=== PATIENT | male | born 1965 | race Caucasian/White ===

== ENCOUNTER 2019-11-01 00:22 | Inpatient (IN) | payer MEDICAID ==
[2019-11-01] VITALS (20 sets, daily range): BP systolic 83–138; BP diastolic 48–83; BMI 26.4
[~2019-11-01] VITALS: Ht 177.8 cm; Wt 83.5 kg
--- NOTE | ~2019-11-01 | OP ---
PATIENT NAME: VAMSI QUIJANO MEDICAL RECORD: [id number] :69 LOCATION:D[facility] D.2306 ADMISSION DATE:11/01/19 SURGEON: ROGER DONOVAN MD DATE OF OPERATION: 11/06/2019 PREOPERATIVE DIAGNOSES: 1. Need for IV access. 2. Acute renal failure secondary to pneumonia. 3. Sepsis secondary to pneumonia. 4. Pneumonia with sepsis. POSTOPERATIVE DIAGNOSES: 1. Need for IV access. 2. Acute renal failure secondary to pneumonia. 3. Sepsis secondary to pneumonia. 4. Pneumonia with sepsis. PROCEDURES: 1. Left subclavian vein triple-lumen central venous line placement. 2. Left femoral arterial line placement. SURGEON: Roger Donovan MD REPORT OF PROCEDURE: The patient's left chest was prepped and draped in sterile fashion. A needle was used to cannulate the left subclavian vein and a guidewire was advanced with ease. Over this wire, a dilator was placed followed by the triple-lumen catheter. The catheter aspirated nonpulsatile dark blood and flushed easily in all 3 ports. This was sutured into place with 3-0 nylon and dressed appropriately. We then prepped and draped the patient's left groin. A needle was used to cannulate the patient's left femoral artery. As we cannulated this, we had good pulsatile flow. A wire was extended through the Angiocath and we then placed the longer femoral arterial cath. There continued to be arterial pulsatile flow through this catheter. We sutured this into place with 3-0 nylons and dressed these appropriately. The patient had a good tracing on the screen following placement and the art line correlated with the cuff pressure. COMPLICATIONS: None. CONDITION: Critical. ANESTHESIA: General endotracheal. BLOOD LOSS: Minimal. Procedure done in the ICU at the bedside. NTS:[id number] Voice Confirmation ID: [id number] DOCUMENT ID: [id number] OPERATIVE REPORT [id number] MACIEROGER MADISON MD CC: [id number] DICTATION DATE: 11/06/19 1156 PAPER GOODS MACHINE OPERATOR: 11/06/19 213 ADM IN [facility] [address] [place] [address]
[2019-11-01 00:55] LABS: HEMOGLOBIN 9.4 g/dL (13.5-17.5); MCH 27.6 pg (26.0-34.0); MCHC 31.3 g/dL (31.0-37.0); MEAN PLATELET VOLUME 9.1 fL (7.4-10.4); PLATELET COUNT 216 10x3/uL (130-400); RBC 3.41 10x6/uL (4.20-6.10); RDW 15.5 % (11.5-14.5); WBC 24.9 10x3/uL (4.8-10.8)
[2019-11-01 00:59] LABS: INR 1.37 (0.85-1.17); PROTIME 16.7 SECONDS (11.6-15.0)
--- NOTE | 2019-11-01 00:59 | NUR ---
CODE SEPSIS PER DR NG
[2019-11-01 01:00] LABS: APTT 42.6 SECONDS (22.8-39.4)
[2019-11-01 01:05] LABS: CALC OSMOLALITY 264 mosm/kg (275-300); CALCIUM 9.5 mg/dL (8.5-10.1); CARBON DIOXIDE 32.6 mmol/L (21.0-32.0); CHLORIDE - SERUM 97 mmol/L (98-107); CREATININE - SERUM 0.4 mg/dL (0.6-1.3); GLUCOSE 145 mg/dL (74-106); POTASSIUM - SERUM 4.9 mmol/L (3.5-5.1); SODIUM 130 mmol/L (136-145); UREA NITROGEN 14 mg/dL (7-18); eGFR NON AFRICAN AMERICAN > 90 mL/min (90-120)
[2019-11-01 01:16] LABS: LYMPHOCYTES 4 % (15-50); MONOCYTES 5 % (2-11); NEUTROPHILS 83 % (40-80); PLATELET ESTIMATE NORMAL
[2019-11-01 01:22] LABS: ALBUMIN 1.3 g/dL (3.4-5.0); ALKALINE PHOSPHATASE 77 U/L (30-120); ALT (SGPT) 25 U/L (10-68); BILIRUBIN - TOTAL 0.28 mg/dL (0.2-1.3); CKMB 3.6 U/L (0.0-3.6); CREATINE KINASE 51 UL (21-232); PRO BNP 948 pg/mL (0-125); PROTEIN - SERUM 5.9 g/dL (6.4-8.2)
[2019-11-01 01:24] LABS: TROPONIN-I 0.259 ng/mL (0.000-0.060)
--- NOTE | 2019-11-01 03:19 | NUR ---
PT APPEARS TO HAVE INCREASED WORK OF BREATHING AND IS ACTIVE DISTRESS. DR NG NOTIFIED.
--- NOTE | 2019-11-01 03:21 | NUR ---
moved to t2 for intubation
--- NOTE | 2019-11-01 03:30 | NUR ---
PT INTUBATED WITH 7.[address] NG. POSITIVE COLOR CHANGE NOTED. RESPIRATORY THERAPIST AT BEDSIDE.
[2019-11-01] MEDS ORDERED: HYDROCODON-ACE1 EAC7 PO (03:58)
[2019-11-01] MEDS ORDERED: COUMADIN10 MG PO (04:01)
[2019-11-01] MEDS ORDERED: ZOSYN 3.3753.375 G1 IV (04:01)
[2019-11-01] MEDS ORDERED: HYDROCODON-ACE1 EA10 PO (04:03)
[2019-11-01] MEDS ORDERED: LEVOFLOXAC750 MG/150 IV (04:04)
[2019-11-01] MEDS ORDERED: FUROSEMIDE10 MG/M1 IV (04:06)
[2019-11-01] MEDS ORDERED: TORADOL30 MG/ML IM (04:06)
[2019-11-01] MEDS ORDERED: LOVENOX80 MG/0.8 SC (04:07)
[2019-11-01] MEDS ORDERED: DULCOLAX10 MG/SUPP RC (04:08)
[2019-11-01] MEDS ORDERED: COLACE100 MG PO (04:08)
[2019-11-01] MEDS ORDERED: PROMOD LIQUID P30 M1 PO (04:10)
[2019-11-01] MEDS ORDERED: CHRONULAC30 ML PO (04:10)
[2019-11-01] MEDS ORDERED: BUSPAR 15 MG TA15 MG PO (04:11)
[2019-11-01] MEDS ORDERED: RISPERDAL1 MG PO (04:12)
[2019-11-01] MEDS ORDERED: TERAZOSIN HCL2 MG PO (04:12)
[2019-11-01] MEDS ORDERED: TIROSINT25 MCG PO (04:12)
[2019-11-01] MEDS ORDERED: ED-SPAZ0.125 MG PO (04:13)
[2019-11-01] MEDS ORDERED: FLOMAX0.4 MG PO (04:13)
--- NOTE | 2019-11-01 04:53 | NUR ---
PT ARRIVED FROM ER ON STREATCHER WITH FIELD ARTILLERY CREWMEMBER AND GAORTEGADSX2. PT IS INTUABTED/SEDATED. NO DISTRESS NOTED. VSS. TRANSFERED TO BED SAFELY. WILL DO FULL ASSESSMENT AND DOC IN FLOW SHEET. BED IS LEFT LOW,SIDE RASILX2,CALL LIGHT WTIHIN REACH. BED ALARM ON. ISOLATION PUI PROTOCOL OBSERVED. RESTRAINTS OBSERVED WITH WARM/PINK EXTREMTIES BILAT
--- NOTE | 2019-11-01 05:18 | NUR ---
AZITHROMYCIN 500MG/250ML STARTED 034 ENDED 441. ROCEPHIN 1000MG/50ML STARTED 025 ENDED 328.
--- NOTE | 2019-11-01 07:00 | NUR ---
BEDSIDE REPORT RECEIVED. SHIFT ASSESSMENT COMPLETED PER FLOWSHEET, SEE FLOWSHEET FOR INFORMATION. NO ACUTE NEEDS OR DISTRESS NOTED AT THIS TIME. VSS. WILL CONT TO MONITOR. PT INTUBATED AND SEDATED.
--- NOTE | 2019-11-01 07:00 | NUR ---
PT IS RESTING/CALM/INTUBATED/SEDATED. VSS. NO DISTRESS NOTED. BED IS LOW,SIDE RAISLX2,CALL LIGHT WTIHIN REACH. WILL CONINTUE TO MONITOR
--- NOTE | 2019-11-01 07:25 | NUR ---
ET TUBE WAS CHANGED OUT
--- NOTE | 2019-11-01 09:00 | NUR ---
PT RESTING IN BED INTUBATED AND SEDATED. NO ACUTE NEEDS OR DISTRESS NOTED AT THIS TIME. VSS. WILL CONT TO MONITOR.
[2019-11-01 09:27] LABS: HEMATOCRIT 27.7 % (42.0-54.0); HEMOGLOBIN 8.6 g/dL (13.5-17.5); MCH 27.4 pg (26.0-34.0); MCV 88.2 fL (80.0-100.0); MEAN PLATELET VOLUME 9.1 fL (7.4-10.4); PLATELET COUNT 220 10x3/uL (130-400); RBC 3.14 10x6/uL (4.20-6.10); RDW 15.4 % (11.5-14.5); WBC 23.2 10x3/uL (4.8-10.8)
[2019-11-01 09:42] LABS: % SATURATION 15 % (15-55); IRON 15 ug/dl (35-150); TOTAL IRON BIND CAPACITY 99 ug/dl (260-445); UNSAT IRON BIND CAPACITY 84 ug/dl (150-375)
[2019-11-01 09:46] LABS: LYMPHOCYTES 4 % (15-50); NEUTROPHILS 93 % (40-80); PLATELET ESTIMATE NORMAL
[2019-11-01 10:10] LABS: ALBUMIN 1.2 g/dL (3.4-5.0); ALKALINE PHOSPHATASE 73 U/L (30-120); ALT (SGPT) 30 U/L (10-68); BILIRUBIN - TOTAL 0.19 mg/dL (0.2-1.3); CALC OSMOLALITY 268 mosm/kg (275-300); CALCIUM 9.6 mg/dL (8.5-10.1); CARBON DIOXIDE 31.2 mmol/L (21.0-32.0); CHLORIDE - SERUM 100 mmol/L (98-107); CKMB 4.2 U/L (0.0-3.6); CREATINE KINASE 41 UL (21-232); CREATININE - SERUM 0.4 mg/dL (0.6-1.3); GLUCOSE 104 mg/dL (74-106); MAGNESIUM - SERUM 1.9 mg/dL (1.8-2.4); PHOSPHOROUS 3.2 mg/dL (2.5-4.9); POTASSIUM - SERUM 4.8 mmol/L (3.5-5.1); PROTEIN - SERUM 5.4 g/dL (6.4-8.2); SODIUM 134 mmol/L (136-145); TROPONIN-I 0.393 ng/mL (0.000-0.060); UREA NITROGEN 16 mg/dL (7-18); eGFR NON AFRICAN AMERICAN > 90 mL/min (90-120)
--- NOTE | 2019-11-01 11:00 | NUR ---
REASSESSMENT COMPLETED PER FLOWSHEET, SEE FLOWSHEET FOR INFORMATION. PT INTUBATED AND SEDATED. NO ACUTE NEEDS OR DISTRESS NOTED AT THIS TIME. WILL CONT TO MONITOR.
--- NOTE | 2019-11-01 13:00 | NUR ---
RESTING IN BED WITH EYES CLOSED. INTUBATED AND SEDATED. NO ACUTE NEEDS OR DISTRESS NOTED AT THIS TIME. VSS. WILL CONT TO MONITOR.
--- NOTE | 2019-11-01 15:00 | NUR ---
REASSESSMENT COMPLETED PER FLOWSHEET, SEE FLOWSHEET FOR INFORMATION. LAB RECEIVED BY DR.CHINN ROSE WILSON. WILL CONT TO MONITOR. VSS.
[2019-11-01 15:08] LABS: CKMB 2.2 U/L (0.0-3.6); CREATINE KINASE 35 UL (21-232)
[2019-11-01 15:09] LABS: TROPONIN-I 0.478 ng/mL (0.000-0.060)
--- NOTE | 2019-11-01 15:43 | NUR ---
UPDATE GIVEN TO , EXPLAINS THAT CANCER CAN CAUSE AN INCREASE IN LACTIC ACID LEVELS, NO NEW ORERS RECIEVED. WILL CONT TO MONITOR.
--- NOTE | 2019-11-01 17:00 | NUR ---
PT NEGATIVE FOR COVID. UPDATED. WILL CONT TO MONITOR. VSS.
--- NOTE | 2019-11-01 18:12 | NUR ---
DR.CHINN ROSE. PT HEART RATE INCREASED FROM 70-80, PT HEART RATE 120-130S. WILL CONT TO MONITOR.
--- NOTE | 2019-11-01 18:20 | NUR ---
GIVEN UPDATE, SABRINA RN VERIFIED ORDER FOR FENTANYL. WILL CONT TO MONITOR.
[2019-11-01 20:25] LABS: CKMB 1.4 U/L (0.0-3.6); CREATINE KINASE 54 UL (21-232)
[2019-11-01 20:27] LABS: TROPONIN-I 1.379 ng/mL (0.000-0.060)
[2019-11-02] VITALS (25 sets, daily range): BP systolic 83–138; BP diastolic 49–82; BMI 26.4
--- NOTE | 2019-11-02 07:00 | NUR ---
PT REPORT RECEIVED FROM SUPERVISOR SHAVING AND SPLITTING NURSE. NO ACUTE SIGNS OF DISTRESS NOTED. SHIFT ASSESSMENT COMPLETED. PT VENTED AND SEDATED. WILL CONTINUE TO MONITOR.
[2019-11-02 07:32] LABS: BASOPHILS 0.1 % (0-2); EOSINOPHILS 0.1 % (0-7); HEMATOCRIT 29.5 % (42.0-54.0); HEMOGLOBIN 8.8 g/dL (13.5-17.5); IMMATURE GRANULOCYTES 1.3 % (0-5); LYMPHOCYTES 4.9 % (15-50); MCH 26.7 pg (26.0-34.0); MCHC 29.8 g/dL (31.0-37.0); MCV 89.7 fL (80.0-100.0); MEAN PLATELET VOLUME 10.4 fL (7.4-10.4); MONOCYTES 5.4 % (2-11); NEUTROPHILS 88.2 % (40-80); PLATELET COUNT 169 10x3/uL (130-400); RBC 3.29 10x6/uL (4.20-6.10); RDW 15.6 % (11.5-14.5); WBC 17.5 10x3/uL (4.8-10.8)
[2019-11-02 07:58] LABS: ALBUMIN 1.3 g/dL (3.4-5.0); ALKALINE PHOSPHATASE 65 U/L (30-120); ALT (SGPT) 29 U/L (10-68); BILIRUBIN - TOTAL 0.23 mg/dL (0.2-1.3); CALCIUM 9.4 mg/dL (8.5-10.1); CARBON DIOXIDE 32.1 mmol/L (21.0-32.0); CHLORIDE - SERUM 102 mmol/L (98-107); CREATININE - SERUM 0.5 mg/dL (0.6-1.3); GLUCOSE 100 mg/dL (74-106); MAGNESIUM - SERUM 1.9 mg/dL (1.8-2.4); PHOSPHOROUS 3.1 mg/dL (2.5-4.9); POTASSIUM - SERUM 4.6 mmol/L (3.5-5.1); PROTEIN - SERUM 4.9 g/dL (6.4-8.2); SODIUM 139 mmol/L (136-145); eGFR NON AFRICAN AMERICAN > 90 mL/min (90-120)
[2019-11-02 07:59] LABS: CALC OSMOLALITY 281 mosm/kg (275-300); TROPONIN-I 0.367 ng/mL (0.000-0.060); UREA NITROGEN 25 mg/dL (7-18)
[2019-11-02 09:14] LABS: INR 1.22 (0.85-1.17); PROTIME 15.3 SECONDS (11.6-15.0)
[2019-11-02 09:20] LABS: APTT 27.8 SECONDS (22.8-39.4)
--- NOTE | 2019-11-02 09:50 | NUR ---
DR HENDRICKS AT BEDSIDE. UPDATE GIVEN. ORDERS RECEIVED. WILL CONTINUE TO MONITOR
--- NOTE | 2019-11-02 11:00 | NUR ---
PT RESTING IN BED. NO SIGNS OF DISTRESS NOTED. REASSESSMENT COMPLETED. WILL CONTINUE TO MONITOR
--- NOTE | 2019-11-02 13:00 | NUR ---
PT RESTING IN BED. GUARD AT BEDSIDE. NO SIGNS OF DISTRESS NOTED. WILL CONTINUE TO MONITOR. TUBE FEEDING STARTED PER ORDER FROM DR HENDRICKS
--- NOTE | 2019-11-02 15:00 | NUR ---
PT REASSESSMETN COMPLETED. NO SIGNS OF DISTRESS NOTED. WILL CONTINUE TO MONITOR
[2019-11-02 17:32] LABS: BILIRUBIN NEGATIVE (NEGATIVE); GLUCOSE NEGATIVE (NEGATIVE); KETONE SMALL mg/dL (NEGATIVE); NITRITE NEGATIVE (NEGATIVE); UROBILINOGEN NORMAL (NORMAL)
--- NOTE | 2019-11-02 17:54 | NUR ---
PT RESTING IN BED. ORAL CARE PROVIDED. NO SIGNS OF DISTRESS NOTED. WILL CONTINUE TO MONITOR
[2019-11-03] VITALS (24 sets, daily range): BP systolic 88–132; BP diastolic 55–80; Ht 177.8 cm; Wt 83.5 kg
[2019-11-03 03:13] LABS: BASOPHILS 0 % (0-2); EOSINOPHILS 0 % (0-7); HEMATOCRIT 31.2 % (42.0-54.0); HEMOGLOBIN 9.2 g/dL (13.5-17.5); IMMATURE GRANULOCYTES 0.9 % (0-5); LYMPHOCYTES 4.2 % (15-50); MCH 26.8 pg (26.0-34.0); MCHC 29.5 g/dL (31.0-37.0); MEAN PLATELET VOLUME 9.8 fL (7.4-10.4); MONOCYTES 3.3 % (2-11); NEUTROPHILS 91.6 % (40-80); PLATELET COUNT 202 10x3/uL (130-400); RBC 3.43 10x6/uL (4.20-6.10); RDW 15.7 % (11.5-14.5); WBC 20.2 10x3/uL (4.8-10.8)
[2019-11-03 03:29] LABS: ALBUMIN 1.3 g/dL (3.4-5.0); ALKALINE PHOSPHATASE 66 U/L (30-120); ALT (SGPT) 30 U/L (10-68); BILIRUBIN - DIRECT 0.13 mg/dL (0.00-0.30); BILIRUBIN - INDIRECT 0.11 mg/dL (0.00-1.00); BILIRUBIN - TOTAL 0.24 mg/dL (0.2-1.3); CALC OSMOLALITY 277 mosm/kg (275-300); CALCIUM 10.7 mg/dL (8.5-10.1); CARBON DIOXIDE 30.5 mmol/L (21.0-32.0); CHLORIDE - SERUM 104 mmol/L (98-107); GLUCOSE 88 mg/dL (74-106); MAGNESIUM - SERUM 1.9 mg/dL (1.8-2.4); PHOSPHOROUS 2.8 mg/dL (2.5-4.9); POTASSIUM - SERUM 4.3 mmol/L (3.5-5.1); PROTEIN - SERUM 5.5 g/dL (6.4-8.2); SODIUM 138 mmol/L (136-145); UREA NITROGEN 21 mg/dL (7-18)
[2019-11-03 03:38] LABS: CREATININE - SERUM 0.3 mg/dL (0.6-1.3); eGFR NON AFRICAN AMERICAN > 90 mL/min (90-120)
--- NOTE | 2019-11-03 07:00 | NUR ---
PT REPORT RECEIVED FROM HYDRO STATION SUPERVISOR NURSE. NO ACUTE SIGNS OF DISTRESS NOTED. PT RESTING IN BED INTUBATED AND SEDATED. SHIFT ASSESSMENT COMPLETED. WILL CONTINUE TO MONITOR
--- NOTE | 2019-11-03 09:31 | NUR ---
PT RESTING IN BED. GUARD AT BEDSIDE. NO SIGNS OF DISTRESS NOTED. WILL CONTINUE TO MONITOR
--- NOTE | 2019-11-03 11:00 | NUR ---
PT RESTING IN BED. NO SIGNS OF DISTRESS NOTED. PT SEDATED. NOT MOVING EXTREMETIES. REASSESSMENT COMPLETED. WILL CONTINUE TO MONITOR
--- NOTE | 2019-11-03 14:13 | NUR ---
PAGED CARDIOLOGY AND NOTIFIED THEM OF CONSULT. SPOKE WITH OLIVER SPENCER. WILL CONTINUE TO MONITOR
--- NOTE | 2019-11-03 16:36 | MORECARE ---
CASE MANAGEMENT DISCHARGE SUMMARY PATIENT: VAMSI QUIJANO UNIT: [id number] ADM DATE: 11/01/19 AGE: 53 : [birth year] SEX: M ROOM/BED: D.2306 AUTHOR: JENNIFER PAZ PHYSICIAN: REFERRING PHYSICIAN: JUAN MONTE MD DATE OF SERVICE: 11/03/19 Discharge Plan Patient Name: VAMSI QUIJANO Facility: [facility]:[place] : 1965 Planned Disposition: Anticipated Discharge Date: Discharge Date: Expected LOS: Initial Reviewer: [email or web address] Initial Review Date: 11/01/2019 Generated: 11/03/19 5:36 pm DCPIA - Discharge Planning Initial Assessment Updated by [id number]: Carol Copeland on 11/03/19 4:31 pm * Is the patient Alert and Oriented? No * How many steps to enter\exit or inside your home? * [facility]CP [facility] * [facility] * Facility Name [facility] * Additional services required to return to the preadmission environment? No * Can the patient safely return to the preadmission environment? Yes * Has this patient been hospitalized within the prior 30 days at any hospital? No Patient Name: VAMSI QUIJANO Page [phone] at 1636 All edits/amendments must be made on the electronic document DICTATION DATE: 11/03/19 1636 AUTISTIC TEACHER: ASTON 11/03/19 1636 RPT#: [id number] DC DATE: STATUS: ADM IN [facility] [address] [place] [address] END OF REPORT
--- NOTE | 2019-11-03 16:44 | MORECARE ---
CASE MANAGEMENT DISCHARGE SUMMARY PATIENT: AVMSI QUIJANO UNIT: [id number] ADM DATE: 11/01/19 AGE: 53 : 69 SEX: M ROOM/BED: D.2306 AUTHOR: JENNIFER PAZ PHYSICIAN: REFERRING PHYSICIAN: JUAN MONTE MD DATE OF SERVICE: 11/03/19 Discharge Plan Patient Name: VAMSI QUIJANO [facility] [facility] 1965 Planned Disposition: Anticipated Discharge Date: Discharge Date: Expected LOS: Initial Reviewer: [email or web address] Initial Review Date: 11/01/2019 Generated: 11/03/19 5:43 pm Comments DCP- Discharge Planning Updated by [email or web address]: Carol Copeland on 11/03/19 3:[address] Patient Name: VAMSI QUIJANO Admission Status: ER Accout number: [id number] Admission Date: 11-01-2019 : 1965 Admission Diagnosis:SEPSIS, UNSPECIFIED ORGANISM Attending: BARBARA MONTE Current LOS: 2 Anticipated DC Date: Planned Disposition: Primary Insurance: MEDICAID DETENTION Discharge Planning Comments: PATIENT IS AN INMATE WITH [facility] AND WILL RETURN THERE UPON DISCHARGE. GUARD AT BEDSIDE Documentation Analyst: Carol Copeland DCPIA - Discharge Planning Initial Assessment Updated by [email or web address]: Carol Copeland on 11/03/19 4:31 pm * Is the patient Alert and Oriented? No * How many steps to enter\exit or inside your home? * PCP [facility] * [facility] * Facility Name [facility] * Additional services required to return to the preadmission environment? No * Can the patient safely return to the preadmission environment? Yes * Has this patient been hospitalized within the prior 30 days at any hospital? No Last DP export: 11/03/19 3:36 p Patient Name: VAMSI QUIJANO Page [phone] at 1644 All edits/amendments must be made on the electronic document DICTATION DATE: 11/03/191642 PULMONOLOGIST: ASTON 11/03/191642 RPT#: [id number] DC DATE: STATUS: ADM IN [place] [id number] [place] [address] END OF REPORT
--- NOTE | 2019-11-03 16:59 | NUR ---
PT ASKED TO BE PUT BACK ON BIPAP MASK. BIPAP PLACED BACK ON PT. WILL CONTINUE TO MONITOR
--- NOTE | 2019-11-03 18:32 | NUR ---
DR LOPEZ IN ROOM. UPDATE GIVEN. WILL CONTINUE TO MONITOR
[2019-11-04] VITALS (25 sets, daily range): BP systolic 79–107; BP diastolic 51–65
[2019-11-04 04:27] LABS: HEMATOCRIT 29.3 % (42.0-54.0); HEMOGLOBIN 8.5 g/dL (13.5-17.5); MCH 26.9 pg (26.0-34.0); MCV 92.7 fL (80.0-100.0); MEAN PLATELET VOLUME 9.7 fL (7.4-10.4); PLATELET COUNT 223 10x3/uL (130-400); RBC 3.16 10x6/uL (4.20-6.10); WBC 22.5 10x3/uL (4.8-10.8)
[2019-11-04 04:39] LABS: ALBUMIN 1.2 g/dL (3.4-5.0); ALKALINE PHOSPHATASE 60 U/L (30-120); BILIRUBIN - DIRECT 0.11 mg/dL (0.00-0.30); BILIRUBIN - INDIRECT 0.16 mg/dL (0.00-1.00); BILIRUBIN - TOTAL 0.27 mg/dL (0.2-1.3); CALCIUM 11.5 mg/dL (8.5-10.1); CARBON DIOXIDE 32.1 mmol/L (21.0-32.0); CHLORIDE - SERUM 108 mmol/L (98-107); GLUCOSE 126 mg/dL (74-106); MAGNESIUM - SERUM 2.2 mg/dL (1.8-2.4); PHOSPHOROUS 2.8 mg/dL (2.5-4.9); PROTEIN - SERUM 5.1 g/dL (6.4-8.2); SODIUM 142 mmol/L (136-145)
[2019-11-04 04:45] LABS: ALT (SGPT) 41 U/L (10-68); CALC OSMOLALITY 291 mosm/kg (275-300); CREATININE - SERUM 0.8 mg/dL (0.6-1.3); POTASSIUM - SERUM 5.1 mmol/L (3.5-5.1); UREA NITROGEN 33 mg/dL (7-18); eGFR NON AFRICAN AMERICAN > 90 mL/min (90-120)
[2019-11-04 05:46] LABS: LYMPHOCYTES 8 % (15-50); MONOCYTES 1 % (2-11); NEUTROPHILS 84 % (40-80); PLATELET ESTIMATE NORMAL
--- NOTE | 2019-11-04 07:00 | NUR ---
PT REPORT RECEIVED FROM BUILDING EQUIPMENT INSPECTOR NURSE. NO ACUTE SIGNS OF DISTRESS NOTED. PT ON VENT SEDATED. SHIFT ASSESSMETN COMPLETED. WILL CONTINUE TO MONITOR.
--- NOTE | 2019-11-04 09:45 | NUR ---
DR HENDRICKS IN UNIT MAKING ROUNDS. AT PT BEDSIDE. UPDATE GIVEN. NEW ORDERS RECEIVED. WILL CONTINUE TO MONITOR
--- NOTE | 2019-11-04 10:47 | NUR ---
Nutrition follow-up/consult: Intubated, sedated Jevity 1.2 elvira started @ 20 ml/hr; increase to goal rate of 60 ml/hr with 100 ml H2O flush q 4 hours. Proteinex protein supplement ordered 30 ml BID flushed with 60 ml warm H2O before & after. This TF regimen will provide: 1968 kcal 110 gm protein 1882 ml free fluid RDN following.
--- NOTE | 2019-11-04 11:06 | NUR ---
ASSOCIATE ACCOUNTANT IN ROOM RUNNING ECHO. PT TOLERATIGN WELL. WILL CONTINUE TO MONITOR. REASSESSMENT COMPLETED. WILL CONTINUE TO MONITOR
--- NOTE | 2019-11-04 13:26 | NUR ---
PT RESTING IN BED. GAVE CHG BATH. PT TOLERATED WELL. WILL CONTINUE TO MONITOR
--- NOTE | 2019-11-04 15:00 | NUR ---
PT REASSESSMENT COMPLETED. ORAL CARE AND PT TURNED. NO ACUTE SIGNS OF DISTRESS NOTED. WILL CONTINUE TO MONITOR
--- NOTE | 2019-11-04 17:00 | NUR ---
PT RESTING IN BED. NO SIGNS OF DISTRESS NOTED. GUARD AT BEDSIDE. WILL CONTINUE TO MONITOR
[2019-11-05] VITALS (74 sets, daily range): BP systolic 79–119; BP diastolic 46–84
[2019-11-05 06:48] LABS: BASOPHILS 0 % (0-2); EOSINOPHILS 0.1 % (0-7); HEMATOCRIT 29.1 % (42.0-54.0); HEMOGLOBIN 8.4 g/dL (13.5-17.5); IMMATURE GRANULOCYTES 1.9 % (0-5); LYMPHOCYTES 5.7 % (15-50); MCH 26.8 pg (26.0-34.0); MCHC 28.9 g/dL (31.0-37.0); MEAN PLATELET VOLUME 9.8 fL (7.4-10.4); NEUTROPHILS 87.3 % (40-80); PLATELET COUNT 194 10x3/uL (130-400); RBC 3.13 10x6/uL (4.20-6.10); RDW 16.4 % (11.5-14.5); WBC 26.3 10x3/uL (4.8-10.8)
[2019-11-05 07:03] LABS: ALBUMIN 1.3 g/dL (3.4-5.0); ALKALINE PHOSPHATASE 56 U/L (30-120); ALT (SGPT) 48 U/L (10-68); BILIRUBIN - DIRECT 0.17 mg/dL (0.00-0.30); BILIRUBIN - INDIRECT 0.19 mg/dL (0.00-1.00); BILIRUBIN - TOTAL 0.36 mg/dL (0.2-1.3); CALC OSMOLALITY 296 mosm/kg (275-300); CALCIUM 11.3 mg/dL (8.5-10.1); CARBON DIOXIDE 29.8 mmol/L (21.0-32.0); CHLORIDE - SERUM 110 mmol/L (98-107); CREATININE - SERUM 0.8 mg/dL (0.6-1.3); GLUCOSE 144 mg/dL (74-106); MAGNESIUM - SERUM 2.3 mg/dL (1.8-2.4); PHOSPHOROUS 2.1 mg/dL (2.5-4.9); POTASSIUM - SERUM 5.3 mmol/L (3.5-5.1); PROTEIN - SERUM 4.9 g/dL (6.4-8.2); SODIUM 143 mmol/L (136-145); UREA NITROGEN 37 mg/dL (7-18); eGFR NON AFRICAN AMERICAN > 90 mL/min (90-120)
--- NOTE | 2019-11-05 11:12 | NUR ---
DR HENDRICKS IN ROOM. UPDATE GIVEN. WANTS TO DO LUMBAR PUNCTURE. TRYING TO OBTAIN CONSENT FROM [facility]. REASSESSMENT COMPLETED. WILL CONTINUE TO MONITOR
--- NOTE | 2019-11-05 11:30 | NUR ---
UNABLE TO CONTACT FAMILY FROM NUMBERS RECEIVED FROM [facility]. WILL TRY ANOTHER WAY TO OBTAIN CONSENT.
--- NOTE | 2019-11-05 13:00 | NUR ---
ABLE TO GET AHOLD OF FAMILY. OBTAINED CONSENT FOR LUMBAR PUNCTURE. FAMILY NUMBERS SAVED IN CASE OF EMERGENCY.
--- NOTE | 2019-11-05 15:26 | EC ---
PATIENT:VAMSI QUIJANO DATE OF SERVICE: 11/01/19 SEX: M MEDICAL RECORD: [id number] DATE OF : 69 LOCATION:[facility] D230 AGE OF PATIENT: 53 ADMISSION DATE: 11/01/19 REFERRING PHYSICIAN: INTERPRETING PHYSICIAN: WILEY OLVERA MD ECHOCARDIOGRAM REPORT ECHO CHARGES 4 ECHO COMPLETE Date: 11/04/19 CLINICAL DIAGNOSIS: ELEVATED TROPONIN ECHOCARDIOGRAPHIC MEASUREMENTS (adult normal given) AC root (d.<3.7cm) 3.3 cm LV Septum d (<1.2 cm> 0.9 cm Valve Excursion 1.8 cm LV Septum (systole) 1.0 cm Left Atria (s.<4.0cm> 2.8 cm LVPW d(<1.2cm) 0.8 cm RV (d.<2.3cm) 3.4 cm LVPW (sytole) 0.9 cm LV diastole(<5.6CM) 5.0 cm MV E-F(>70mm/sec) cm LV systole 3.9 cm LVOT Diameter 2.0 cm MV exc.(>10mm) cm Est.ejection fraction (50-75%) % DOPPLER: LVIT cm/sec A 52 cm/sec E 59 cm/sec LA cm/sec RVSP 31.2 mmHg LVOT 72 cm/sec AOP1/2T m/s Asc. Ao 97 cm/sec RVOT 48 cm/sec RA cm/sec PA 76 cm/sec AV Gradient Peak 3.8 mmHg AV Mean 2.1 mmHg AV Area 3.4 cm MV Gradient Peak 1.4 mmHg MV Mean 1.1 mmHg MV Area cm COMMENTS: Carpenter Mold: Hiram [facility] Certified Travel Counselor: 3 Dr. Joiner TAPE# PACS Pericardial Effusion Y DATE OF SERVICE: Adequate 2D, color flow imaging, spectral Doppler and M-Mode No LVH. LV internal dimensions are normal. LV appears to be mildly globally hypokinetic to lower limits of normal to mildly reduced. Estimated EF 45% to 50%. Aortic valve is tricuspid. No evidence of stenosis by Doppler interrogation. Left atrium is normal. Mitral valve shows no prolapse. Trivial MR. Right-sided chambers are grossly normal. Trace TR. ECHOCARDIOGRAM REPORT [id number] VAMSI QUIJANO TRANSINT:[id number] Voice Confirmation ID: [id number] DOCUMENT ID: [id number] WILEY OLVERA MD at 1526 CC: [id number] DICTATION DATE: 11/05/19 142 GENERAL MERCHANDISE SALESPERSON: 11/05/19 1437 ADM IN [place] [id number] [place] [id number]
[2019-11-06] VITALS (81 sets, daily range): BP systolic 85–134; BP diastolic 5–87
--- NOTE | 2019-11-06 09:57 | NUR ---
0700 BEDSIDE REPORT RECEIVED ASSESSMENT COMPLETE
--- NOTE | 2019-11-06 09:58 | NUR ---
0900 PLACED ON ISOLATION - RESISTANT GRAM NEGATIVE RODS IN SPUTUM
--- NOTE | 2019-11-06 09:59 | NUR ---
0905 DR MEJIA AT BEDSIDE AND WENT TO [employer]ATHER SUPPLIES NEED TO PUT A-LINE IN
--- NOTE | 2019-11-06 10:50 | NUR ---
Nutrition follow-up: TF off / lumbar puncture today Pt had Jevity 1.2 elvira @ 60 ml/hr with Proteinex 30 ml BID Pt remains intubated Wt: 184# RDN following.
[2019-11-06 12:49] LABS: HEMATOCRIT 33.1 % (42.0-54.0); HEMOGLOBIN 9.5 g/dL (13.5-17.5); MCH 26.9 pg (26.0-34.0); MCHC 28.7 g/dL (31.0-37.0); MCV 93.8 fL (80.0-100.0); MEAN PLATELET VOLUME 10.8 fL (7.4-10.4); PLATELET COUNT 162 10x3/uL (130-400); RBC 3.53 10x6/uL (4.20-6.10); RDW 16.5 % (11.5-14.5); WBC 25.7 10x3/uL (4.8-10.8)
[2019-11-06 13:04] LABS: ALBUMIN 1.3 g/dL (3.4-5.0); ALKALINE PHOSPHATASE 74 U/L (30-120); BILIRUBIN - DIRECT 0.22 mg/dL (0.00-0.30); BILIRUBIN - INDIRECT 0.12 mg/dL (0.00-1.00); BILIRUBIN - TOTAL 0.34 mg/dL (0.2-1.3); CALCIUM 10.6 mg/dL (8.5-10.1); CARBON DIOXIDE 30.8 mmol/L (21.0-32.0); CHLORIDE - SERUM 111 mmol/L (98-107); CREATININE - SERUM 0.9 mg/dL (0.6-1.3); GLUCOSE 160 mg/dL (74-106); MAGNESIUM - SERUM 2.5 mg/dL (1.8-2.4); PHOSPHOROUS 2.6 mg/dL (2.5-4.9); PROTEIN - SERUM 5.3 g/dL (6.4-8.2); SODIUM 145 mmol/L (136-145); eGFR NON AFRICAN AMERICAN > 90 mL/min (90-120)
[2019-11-06 13:06] LABS: ALT (SGPT) 274 U/L (10-68); CALC OSMOLALITY 304 mosm/kg (275-300); LYMPHOCYTES 23 % (15-50); NEUTROPHILS 74 % (40-80); PLATELET ESTIMATE NORMAL; UREA NITROGEN 48 mg/dL (7-18)
[2019-11-06 13:08] LABS: POTASSIUM - SERUM 6.5 mmol/L (3.5-5.1)
--- NOTE | 2019-11-06 19:02 | NUR ---
[address] HENDRICKS AT BEDSIDE UNSUCCESSUL WITH LUMBAR PUNCTURE BANDAIDS X 2 PLACED ON LOWER BACK AT PUNCTURE SITES
--- NOTE | 2019-11-06 19:04 | NUR ---
1200 DR MEJIA AT BEDSIDE PLACED LEFT GROIN ART LINE AND LEFT SC CENTRAL LINE CXR FOR PLACEMENT COMPLETE
--- NOTE | 2019-11-06 19:06 | NUR ---
1300 CHANGED IV TUBING TO US FOR NEW CENTRAL LINE ART LINE ZEROED
--- NOTE | 2019-11-06 19:07 | NUR ---
1500 SOFT BM NOTED CHG BATH COMPLETE
--- NOTE | 2019-11-06 19:08 | NUR ---
1700 REPOSITIONED IN BED
--- NOTE | 2019-11-06 22:07 | NUR ---
SPOKE WITH DR HENDRICKS VIA PHONE. UPDATES GIVEN. NO NEW ORDERS AT THIS TIME
[2019-11-07] VITALS (68 sets, daily range): BP systolic 75–155; BP diastolic 33–100
--- NOTE | 2019-11-07 03:45 | NUR ---
BP IS TRENDING DOWN. LEVOPHED TITRATED TO MAXIMUM DOSE. VASOPRESSIN INITIATED. CONTINUING TO MONITOR CLOSELY.
[2019-11-07 06:08] LABS: BASOPHILS 0.1 % (0-2); EOSINOPHILS 0.4 % (0-7); HEMATOCRIT 32.3 % (42.0-54.0); HEMOGLOBIN 9.2 g/dL (13.5-17.5); IMMATURE GRANULOCYTES 3.6 % (0-5); LYMPHOCYTES 7.7 % (15-50); MCH 26.9 pg (26.0-34.0); MCHC 28.5 g/dL (31.0-37.0); MCV 94.4 fL (80.0-100.0); MEAN PLATELET VOLUME 10.6 fL (7.4-10.4); MONOCYTES 3.3 % (2-11); NEUTROPHILS 84.9 % (40-80); PLATELET COUNT 122 10x3/uL (130-400); RBC 3.42 10x6/uL (4.20-6.10); RDW 16.7 % (11.5-14.5); WBC 25.5 10x3/uL (4.8-10.8)
[2019-11-07 06:28] LABS: ALBUMIN 1.2 g/dL (3.4-5.0); BILIRUBIN - DIRECT 0.47 mg/dL (0.00-0.30); BILIRUBIN - INDIRECT 0.17 mg/dL (0.00-1.00); BILIRUBIN - TOTAL 0.64 mg/dL (0.2-1.3); CALCIUM 10.2 mg/dL (8.5-10.1); CARBON DIOXIDE 24.3 mmol/L (21.0-32.0); MAGNESIUM - SERUM 2.6 mg/dL (1.8-2.4)
[2019-11-07 07:15] LABS: ANION GAP 13.8 mmol/L (8-16); CREATININE - SERUM 1.4 mg/dL (0.6-1.3); PHOSPHOROUS 4.9 mg/dL (2.5-4.9)
[2019-11-07 07:16] LABS: POTASSIUM - SERUM 7.1 mmol/L (3.5-5.1)
--- NOTE | 2019-11-07 10:45 | NUR ---
0700 BEDSIDE REPORT RECEIVED FROM ISAAC BOOGIEMANAGER HARBOR COMPLETE LARGE SOFT BM NOTED NIGHT RN ASSISTED WITH CLEANING UP PATIENT PULLED UP IN BED AND REPOSITIIONED TO RIGHT SIDE. FENTANYL OFF AT PRESENT LEVO AT MAX AT 30 MCG/MIN VASOPRESON INFUSING AT 0.04 UNITS/MIN AND NS AT 15ML
--- NOTE | 2019-11-07 10:50 | NUR ---
0900 ALL PRESSORS REMAIN THE SAME REPOSITIONED TO LEFT SIDE
--- NOTE | 2019-11-07 20:47 | NUR ---
RETURNED CALL TO PT BROTHER, PAYAL. ALL QUESTIONS ANSWERED AND UPDATE PROVIDED.
--- NOTE | 2019-11-07 22:10 | NUR ---
DR HENDRICKS CALLED TO CHECK ON PT, UPDATED REGARDING CURRENT PT STATUS, NO FURTHER ORDERS AT THIS TIME.
[2019-11-08] VITALS (7 sets, daily range): BP systolic 90–100; BP diastolic 40–43
--- NOTE | 2019-11-08 02:50 | NUR ---
REASSESSMENT PER FLOWSHEET, NO ACUTE CHANGES NOTED AT THIS TIME, CONT POC.
--- NOTE | 2019-11-08 04:29 | NUR ---
BRADYCARDIA IN THE 30'S NOTED ON CM, RHYTHM PROGRESSED TO AGONAL BEATS. GUARD AT BEDSIDE.
--- NOTE | 2019-11-08 04:50 | NUR ---
ALEXANDER ALTAMIRANO APRN FOR DR PETERSEN NOTIFIED REGARDING PT PASSING.
--- NOTE | 2019-11-08 05:01 | NUR ---
DR OSBORNE HERE TO PRONOUNCE PT
--- NOTE | 2019-11-08 05:06 | NUR ---
LAURIE WILKES (MOLD DRESSER) NOTIFIED REGARDING PT , PERMISSION RECEIVED TO RELEASE TO HOME PER [facility] OR PT FAMILY.
--- NOTE | 2019-11-08 05:27 | NUR ---
JAXON NOTIFIED OF PT PASSING, RULED OUT FOR DONATION DUE TO MEDICAL HISTORY. VETERINARY PRACTITIONER ANJELICA GREENBERG REF #[id number]
--- NOTE | 2019-11-08 08:31 | NUR ---
POSTMORTOM CARE PROVIDED. PERIPHERAL IVS TO LT FOREARM X 2 DCD, CATHETER TIP INTACT. LT GROIN A LINE DCD, CATHETER TIP INTACT. MUNOZ DCD, CATHETER TIP INTACT. PER [facility], IT WOULD BE A FEW HOURS BEFORE THEY WOULD BE ABLE TO MAINTENANCE PLANNER THE BODY.
--- NOTE | 2019-11-08 10:58 | NUR ---
PT BODY PICKED UP BY RAYNA HULL, PENITENTIARY HOME REPRESENTITIVE. PTS FAMILY, PAYAL QUIJANO, CALLED STATING THEY RECIEVED CALLS AT 0449 THIS MORNING AND WERE CALLING BACK; THIS FAMILY MEMBER WAS UPDATED ON PT STATUS, FAMILY MEMBER STATED, "WE KNEW IT WOULD HAPPEN SOMETIME SOON, THANK YOU FOR TELLING ME." NO FURTHER ACTIONS.
--- NOTE | 2019-11-08 11:50 | MORECARE ---
CASE MANAGEMENT DISCHARGE SUMMARY PATIENT: VAMSI QUIJANO UNIT: [id number] ADM DATE: 11/01/19 AGE: 53 : 69 SEX: M ROOM/BED: D.2306 AUTHOR: JENNIFER PAZ PHYSICIAN: REFERRING PHYSICIAN: JUAN MONTE MD DATE OF SERVICE: 11/08/19 Discharge Plan Patient Name: VAMSI QUIJANO Facility: [facility]:[place] : 1965 Planned Disposition: Anticipated Discharge Date: Discharge Date: 11/08/2019 Expected LOS: Initial Reviewer: [email or web address] Initial Review Date: 11/01/2019 Generated: 11/08/19 12:50 pm Comments DCP- Discharge Planning Updated by [id number]: Carol Copeland on 11/03/19 3:[address] Patient Name: VAMSI QUIJANO Admission Status: ER Accout number: [id number] Admission Date: 11-01-2019 : 1965 Admission Diagnosis:SEPSIS, UNSPECIFIED ORGANISM Attending: BARBARA MONTE Current LOS: 2 Anticipated DC Date: Planned Disposition: Primary Insurance: MEDICAID INTERMEDIATE Discharge Planning Comments: PATIENT IS AN INMATE WITH [facility] AND WILL RETURN THERE UPON DISCHARGE. GUARD AT BEDSIDE Neck Cutter: Carol Copeland DCPIA - Discharge Planning Initial Assessment Updated by [email or web address]: Carol Copeland on 11/03/19 4:31 pm * Is the patient Alert and Oriented? No * How many steps to enter\exit or inside your home? * [facility]CP [facility] * [facility] * Facility Name [facility] * Additional services required to return to the preadmission environment? No * Can the patient safely return to the preadmission environment? Yes * Has this patient been hospitalized within the prior 30 days at any hospital? No Last DP export: 11/03/19 3:43 p Patient Name: VAMSI QUIJANO Page [id number] at 1150 All edits/amendments must be made on the electronic document DICTATION DATE: 11/08/19 1150 HISTORY DEPARTMENT CHAIR: ASTON 11/08/19 1150 RPT#: [id number] DC DATE:11/08/19 STATUS: DIS IN [facility] [address] [place] [address] END OF REPORT
[2019-11-09 16:08] LABS: AEROBE ID Final report (())
--- NOTE | 2019-11-10 12:15 | NUR ---
Per CMS protocol, restraint report logged into data base.
== END 2019-11-08 04:32 | DRG 870 ==
LOC: D.ER 00:22 → D.ICU 02:09 → D.M2 02:09 → D.ICU 02:09
PROVIDERS: Family Medicine; Internal Medicine Pulmonary Disease; ADMIT Emergency Medicine; ATTEND Emergency Medicine
PROC: 5A1955Z Respiratory Ventilation, Greater than 96 Consecutive Hours (ICD-10-PCS; principal; 2019-11-01)
PROC: 0BH17EZ Insertion of Endotracheal Airway into Trachea, Via Natural or Artificial Opening (ICD-10-PCS; 2019-11-01)
PROC: 05H633Z Insertion of Infusion Device into Left Subclavian Vein, Percutaneous Approach (ICD-10-PCS; 2019-11-06)
PROC: 04HY32Z Insertion of Monitoring Device into Lower Artery, Percutaneous Approach (ICD-10-PCS; 2019-11-06)
PROC: 4A133B1 Monitoring of Arterial Pressure, Peripheral, Percutaneous Approach (ICD-10-PCS; 2019-11-06)
PROC: 4A133J1 Monitoring of Arterial Pulse, Peripheral, Percutaneous Approach (ICD-10-PCS; 2019-11-06)
PROC: 00JU3ZZ Inspection of Spinal Canal, Percutaneous Approach (ICD-10-PCS; 2019-11-06)
DX: A41.9 Sepsis, unspecified organism (principal); J18.9 Pneumonia, unspecified organism; J96.22 Acute and chronic respiratory failure with hypercapnia; G82.50 Quadriplegia, unspecified; E87.1 Hypo-osmolality and hyponatremia; D64.9 Anemia, unspecified; D50.9 Iron deficiency anemia, unspecified; D72.829 Elevated white blood cell count, unspecified; L89.629 Pressure ulcer of left heel, unspecified stage; R00.0 Tachycardia, unspecified; Z66 Do not resuscitate; C67.9 Malignant neoplasm of bladder, unspecified